=== PATIENT | female | born 1965 | race Hispanic/Latino ===

== ENCOUNTER 2023-10-14 09:40 | Outpatient (CLI) | payer OTHER ==
[2023-10-14] MEDS ORDERED: Magnevist 469MG/ML 20 ML VIAL ONE (11:33)
== END 2023-10-14 09:41 | disposition home or self-care (01) ==
LOC: CSHMRI 09:40
PROVIDERS: ATTEND Nurse Practitioner Family
DX: M54.50 Low back pain, unspecified (principal); M51.36 Other intervertebral disc degeneration, lumbar region; M48.061 Spinal stenosis, lumbar region without neurogenic claudication
CPT/HCPCS: 72158; A9579